=== PATIENT | female | born 1955 | race Caucasian/White ===

== ENCOUNTER 2019-07-06 09:21 | Inpatient (IN) ==
--- NOTE | 2019-07-06 09:13 | Anesthesia Evaluation PreOp ---
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 Significant HX Other Medical History: Renal (stage 3 CKD), Diabetes Type II, GERD, Other (obesity BMI=53.3) Anesthesia History: No Prior Anesthetic Complications, Past Anesthesia Alcohol Use: none Drug use: none Medications and Allergies Albuterol Sulfate [Proair Respiclick] 2 puff IH Q4H PRN 05/23/18 [History] Aspirin 81 mg PO DAILY 05/23/18 [History] Cetirizine HCl [All Day Allergy] 10 mg PO DAILY 05/23/18 [History] Escitalopram [Lexapro] 20 mg PO DAILY 05/23/18 [History] Ferrous Sulfate [Iron] 1 tab PO DAILY 05/23/18 [History] Fluticasone Propionate Nasal [Flonase] 2 spray NS DAILY 05/23/18 [History] Furosemide [Lasix] 20 mg PO DAILY 05/23/18 [History] Gabapentin [Neurontin] 900 mg PO TID 05/23/18 [History] Glimepiride [Amaryl] 1 tab PO DAILY 05/23/18 [History] HYDROcodone/Acet 10/325 mg [[place] 10-325 mg] 1 tab PO TID PRN 05/23/18 [History] HYDROcodone/Acet 7.5/325 mg [[place] 7.5-325 mg] 1 tab PO Q6H PRN 3 Days #12 tablet 05/23/18 [Rx] Lisinopril 2.5 mg PO DAILY 05/23/18 [History] Loratadine [Claritin] 10 mg PO DAILY 05/23/18 [History] Lovastatin [Mevacor] 20 mg PO HS 05/23/18 [History] Metoprolol Succinate [Toprol Xl] 1 tab PO DAILY 05/23/18 [History] Multivitamin [One Daily Essential] 1 tab PO DAILY 05/23/18 [History] Nystatin POWDER [Nystop] 1 appl TP BID 05/23/18 [History] Omeprazole [PriLOSEC] 1 cap PO DAILY 05/23/18 [History] Potassium Chloride [K-Tab ER] 20 meq PO DAILY 05/23/18 [History] Tizanidine HCl [Zanaflex] 1 - 2 tab PO HS PRN 05/23/18 [History] Clindamycin [Cleocin] 150 mg PO Q6HR 2 Days #7 capsule 07/06/19 [Rx] Docusate [Colace] 100 mg PO BID 5 Days #10 capsule 07/06/19 [Rx] Ergocalciferol (VITAMIN D2) [Vitamin D2] 50,000 unit PO FR 07/06/19 [History] Oxybutynin [Ditropan] 5 mg PO BID 07/06/19 [History] Allergy/AdvReac Type Severity Reaction Status Date / Time No Known Allergies Allergy Verified 07/06/19 10:44 - Meds/Allergy Pre-op Review Medications Reviewed: Yes Allergies Reviewed: Yes Beta Blockers on Current Med List: Yes If Beta Blockers taken, Date/Time (Last Dose taken): 07/06/2019 at 0730 Anesthesia Results - Labs Laboratory Tests 07/02/19 07/02/19 07/02/19 15:09 15:09 15:09 WBC 6.9 Hgb 13.3 Hct 41.7 Plt Count 180 PT 12.2 H INR 1.1 APTT 33.5 Sodium 138 Potassium 4.0 BUN 15 Creatinine 1.08 - Imaging EKG: report reviewed (07/02/2019 SINUS RHYTHM) Additional studies: 11/17/2014 Echo Impressions: Technically sub-optimal due to body habitus, even with Definity. Grossly normal LV function. LVEF 60%. Unable to fully evaluate segmental wall motion due to technical quality. LV chamber size and wall thickness were not well measured. Normal right ventricular structure and function. Valvular structures were not well visualized. Valvular Doppler evaluation was limited. Mild aortic regurgitation. PHT was not obtained. At least trace tricuspid regurgitation. Mild pulmonary hypertension. Estimated RVSP is 48 mmHg. RVSP is probably underestimated - TR was not well seen. Findings: Study Quality * Technically sub-optimal due to body habitus, even with Definity. ECG Findings * Sinus rhythm with PACs. Left Ventricle * Grossly normal LV function. LVEF 60%. * Unable to fully evaluate segmental wall motion due to technical quality. * LV chamber size and wall thickness were not well measured. Right Ventricle * Normal right ventricular structure and function. Left Atrium * Normal left atrial size. Right Atrium * Normal right atrial size. Interatrial Septum * Interatrial septum not well evaluated. Aortic Valve * Aortic valve not well visualized. * Mild aortic regurgitation. PHT was not obtained. * Probably no aortic stenosis (though Doppler evaluation was suboptimal). Mitral Valve * Mitral valve not well visualized. Tricuspid Valve * Tricuspid valve not well visualized. * Trace tricuspid regurgitation. * Mild pulmonary hypertension. * Estimated RVSP is 48 mmHg. * Estimated RA pressure is 5 mmHg. Pulmonic Valve * Pulmonic valve not well visualized. Aorta * The aorta was not well seen. Pericardium * The pericardium appears normal. IVC * The IVC is not well evaluated. Pulmonary Artery * Pulmonary artery not well visualized. Anesthesia Exam O2 Sat Height 1.65 m Weight 145.15 kg O2 Sat by Pulse Oximetry 96 Vital Signs Temp Pulse Resp BP Pulse Ox 98.5 F 82 18 115/64 96 07/06/19 09:59 07/06/19 09:59 07/06/19 09:59 07/06/19 09:59 07/06/19 09:59 Blood Glucose* 134 Height: 5'5'' Weight: 320 lbs NPO (# of Hours): 8 Pain Scale: 5 Pain Scale Used: Numeric (1 - 10) - HEENT Pupil (Motor): EOMI Mallampati: III Teeth: Edentulous Denture Type: Upper: Complete, Lower: Complete Oral Opening: Greater than 3 - LIFE SCIENCES TEACHER LOC: Oriented LIFE SCIENCES TEACHER Motor: Normal RUE, Normal RLE, Normal LLE, Normal Face, Deficit LUE LIFE SCIENCES TEACHER Sensory: Normal: RUE, LUE, RLE, LLE, Face - Cardiac Rhythm: Regular (distant heart sounds) Murmur: None - Pulmonary Breath Sounds: bilateral Clear (distant BS) Respiratory Effort: Symmetrical Anesthesia Assess/Plan ASA Score: 4 Level of consciousness: Cooperative, Oriented, Tranquil Anesthetic Plan: General, Regional Nerve Block (post-op pain) Regional Nerve Block Plan: Supraclavicular Monitoring Plan: Standard Monitors Recovery Plan: PACU
--- NOTE | 2019-07-06 09:36 | History & Physical Report ---
Date of Encounter: 07/06/19 Time of Encounter: 09:36 24 Hour HP Update - Instructions Instructions: If the History and Physical is less than 30 days old and was completed prior to A.M. admission and or procedure and has NOT been updated on calendar day of procedure please complete this update prior to performing procedure. - Update Patient reports changes in Medical Condition: No Changes in examination, assessment, or condition: No Changes in Medication: No Preop tests/diagnostics Reviewed: Yes Surgery Remains Indicated: Yes Consent for Planned Operative Procedure(s) Verified: Yes - Pre-Operative Checklist Preoperative Checklist Indicated: No Prophylactic Antibiotic Ordered: Yes Is VTE Prophylaxis Indicated?: Yes
--- NOTE | 2019-07-06 09:56 | Discharge Summary ---
<Alec Blancas M - Last Filed: 07/06/19 09:53> Date of Encounter: 07/06/19 - Discharge Diagnosis (1) Left shoulder pain Priority: Primary Status: Acute Qualifiers: Chronicity: unspecified Qualified Code(s): M25.512 - Pain in left shoulder (2) Status post reverse arthroplasty of left shoulder Priority: Primary Status: Acute - Hospital Course Hospital course: Ms. Lynch is a 64 year old female - Time Spent with Patient Total time spent providing and/or coordinating discharge services: - Discharge Medications Prescriptions: New Docusate [Colace] 100 mg PO BID 5 Days #10 capsule Continued Lovastatin [Mevacor] 20 mg PO HS Aspirin 81 mg PO DAILY Escitalopram [Lexapro] 20 mg PO DAILY Metoprolol Succinate [Toprol Xl] 25 tab PO DAILY Glimepiride [Amaryl] 2 mg PO DAILY Multivitamin [One Daily Essential] 1 tab PO DAILY Ferrous Sulfate [Iron] 325 mg PO BID Nystatin POWDER [Nystop] 1 appl TP BID PRN PRN Reason: IRRITATION Albuterol Sulfate [Proair Respiclick] 2 puff IH Q4H PRN PRN Reason: Shortness Of Breath Omeprazole [PriLOSEC] 40 mg PO DAILY Loratadine [Claritin] 10 mg PO QAM Fluticasone Propionate Nasal [Flonase] 2 spray NS DAILY PRN PRN Reason: Allergy Symptoms HYDROcodone/Acet 10/325 mg [[place] 10-325 mg] 1 tab PO TID PRN PRN Reason: Pain Tizanidine HCl [Zanaflex] 2 - 4 tab PO HS PRN PRN Reason: Muscle Spasm Gabapentin [Neurontin] 900 mg PO TID Lisinopril 2.5 mg PO DAILY Oxybutynin [Ditropan] 5 mg PO BID Ergocalciferol (VITAMIN D2) [Vitamin D2] 50,000 unit PO FR Buspirone HCl [Buspar] 5 mg PO BID Potassium Chloride [Klor-Con 10] 10 meq PO DAILY Dicyclomine [Bentyl] 10 mg PO BID Cholestyramine/Aspartame [Cholestyramine Light Packet] 1 - 2 pack PO DAILY Alogliptin Benzoate [Alogliptin] 12.5 mg PO DAILY Cetirizine HCl [24Hour Allergy] 10 mg PO QPM Home Medications: Albuterol Sulfate [Proair Respiclick] 2 puff IH Q4H PRN 05/23/18 [History] Aspirin 81 mg PO DAILY 05/23/18 [History] Escitalopram [Lexapro] 20 mg PO DAILY 05/23/18 [History] Ferrous Sulfate [Iron] 325 mg PO BID 05/23/18 [History] Fluticasone Propionate Nasal [Flonase] 2 spray NS DAILY PRN 05/23/18 [History] Gabapentin [Neurontin] 900 mg PO TID 05/23/18 [History] Glimepiride [Amaryl] 2 mg PO DAILY 05/23/18 [History] HYDROcodone/Acet 10/325 mg [[place] 10-325 mg] 1 tab PO TID PRN 05/23/18 [History] Lisinopril 2.5 mg PO DAILY 05/23/18 [History] Loratadine [Claritin] 10 mg PO QAM 05/23/18 [History] Lovastatin [Mevacor] 20 mg PO HS 05/23/18 [History] Metoprolol Succinate [Toprol Xl] 25 tab PO DAILY 05/23/18 [History] Multivitamin [One Daily Essential] 1 tab PO DAILY 05/23/18 [History] Nystatin POWDER [Nystop] 1 appl TP BID PRN 05/23/18 [History] Omeprazole [PriLOSEC] 40 mg PO DAILY 05/23/18 [History] Tizanidine HCl [Zanaflex] 2 - 4 tab PO HS PRN 05/23/18 [History] Alogliptin Benzoate [Alogliptin] 12.5 mg PO DAILY 07/06/19 [History] Buspirone HCl [Buspar] 5 mg PO BID 07/06/19 [History] Cetirizine HCl [24Hour Allergy] 10 mg PO QPM 07/06/19 [History] Cholestyramine/Aspartame [Cholestyramine Light Packet] 1 - 2 pack PO DAILY 07/06/19 [History] Dicyclomine [Bentyl] 10 mg PO BID 07/06/19 [History] Docusate [Colace] 100 mg PO BID 5 Days #10 capsule 07/06/19 [Rx] Ergocalciferol (VITAMIN D2) [Vitamin D2] 50,000 unit PO FR 07/06/19 [History] Oxybutynin [Ditropan] 5 mg PO BID 07/06/19 [History] Potassium Chloride [Klor-Con 10] 10 meq PO DAILY 07/06/19 [History] Allergies/Adverse Reactions: Allergy/AdvReac Type Severity Reaction Status Date / Time No Known Allergies Allergy Verified 07/06/19 10:44 Primary care physician: Sandrine Rodriguez MD - Patient Status Disposition: Home Health Service Condition: Good - Discharge Instructions Follow Up With: Pietro Monterroso MD [Partnered Physician] - 08/05/19 5:05 pm Monica Maire CNP [Advanced Practice Nurse] - 07/16/19 1:30 pm Additional Instructions: Patient is to HOLD chronic norco for 1-2 weeks while taking oxycodone for initial postop pain before weaning back to her chronic norco. Discharge Instructions: Total Shoulder Please call [facility] ([phone]), your Primary Care Physician, or report to the Emergency Room if you have any of the following symptoms: Nausea, vomiting, fever greater that 101.5, swelling, chest pain, shortness of breath, increased pain/redness/drainage/odor for your incision site, numbness/tingling, or any other concerning symptoms. ACTIVITY: Always keep your arm in the sling. Do not raise your arm away from your body. Do not use your arm to help with getting in or out of bed. No weight bearing permitted. Only perform those exercises given to you by your therapist. Incentive Spirometer 10 times an hour. MEDICATIONS: Upon discharge resume your home medications. Take all the medications as prescribed. Take a stool softener if taking narcotic pain medications. Stool softeners are only effective if you drink enough fluids. Drink 6-8 glass of water or fluids a day, unless this is not allowed for another health problem. Despite using stool softeners, if you haven't had a bowel movement in 3 days, please switch to a gentle laxative. Gentle laxatives are sold over the counter. You should have a bowel movement within 24 hours, if not call the office. You will be discharged from the hospital with a prescription for pain medication. You are encouraged to decrease the use of narcotic pain medication as tolerated. Should you require a refill, please call the office. [facility] prescribes narcotic pain medication for only 4-6 weeks after surgery. If you require pain medication beyond this time period, you may be referred to your Primary Care Physician or to the Pain Clinic for further evaluation. Plan ahead for refills on pain medication as many narcotics either need to be picked up at the office or mailed. It is best to call 48-72 hours in advance of needing a prescription refill so you don't run out of medication. To help control the post-operative pain, you may take NSAIDs (Aleve,Advil, Motrin, Ibuprofen, Naprosyn) or Tylenol as prescribed on the bottle in addition to the pain medication. WOUND CARE: Leave the dressing on for 7-10 days. You may change the dressing if it becomes saturated greater than 50%. Do not get the dressing wet at anytime. Wash your hands with antibacterial soap, rinse and dry prior to any wound care. If you have sasha the visiting nurse or rehab facility can remove the stapes 10-14 days after surgery and place steri-strips across the wound. Leave the steri-strips in place until they fall off on their own. You may let water from the shower run on top of the steri-strips. If you do not have a visiting nurse or rehab facility, you will need to return to the office at 10-14 days for the sasha to be removed. If you have itching or redness around the dressing call the office. FOLLOW-UP: Please follow up with your surgeon in the orthopedic clinic, as scheduled <Lizett Rolle - Last Filed: 07/07/19 18:22> - NOTES TO OUTPATIENT PROVIDER Notes to Outpatient Provider: Patient is to HOLD chronic norco for 1-2 weeks while taking oxycodone for initial postop pain before weaning back to her chronic norco. Orders not resulted at time of discharge: Pending orders 07/06/19 13:21 Surgical Pathology [PTH] Routine Date of Encounter: 07/07/19 Time of Encounter: 12:45 - Discharge Diagnosis (1) Status post reverse arthroplasty of left shoulder Priority: Primary Status: Acute (2) Left rotator cuff tear arthropathy Priority: Primary Status: Chronic (3) Diabetes mellitus Priority: Secondary Status: Chronic Qualifiers: Diabetes mellitus type: type 2 Diabetes mellitus jewel waxer insulin use: unspecified jewel waxer insulin use status Diabetes mellitus complication status: without complication Qualified Code(s): E11.9 - Type 2 diabetes mellitus without complications (4) HTN (hypertension) Priority: Secondary Status: Chronic Qualifiers: Hypertension type: unspecified Qualified Code(s): I10 - Essential (primary) hypertension (5) Obesity, morbid, BMI 50 or higher Priority: Secondary Status: Chronic (6) COPD (chronic obstructive pulmonary disease) Priority: Secondary Status: Chronic Qualifiers: COPD type: unspecified COPD Qualified Code(s): J44.9 - Chronic obstructive pulmonary disease, unspecified (7) GERD (gastroesophageal reflux disease) Priority: Secondary Status: Chronic Qualifiers: Esophagitis presence: esophagitis presence not specified Qualified Code(s): K21.9 - Gastro-esophageal reflux disease without esophagitis (8) CKD (chronic kidney disease) Priority: Secondary Status: Chronic Qualifiers: Chronic kidney disease stage: unspecified stage Qualified Code(s): N18.9 - Chronic kidney disease, unspecified - Hospital Course Hospital course: Ms. Lynch is a 64 year old female status post left TSR reverse 07/06/19 with medical history of DM, HTN, obesity, COPD, GERD, CKD and h/o cervical cancer. She participated in therapy and had an uneventful hospital course. She will follow up in [facility] office next week for reevaluation. PCR - POD#1 s/p left TSR reverse 07/06. Patient seen at bedside, without complaints. A&O x 3 Afebrile, vital signs stable. Dressings c/d/i,, NV intact, sensation intact distally. Labs reviewed. H/H - 11.4/34.6 stable, asymptomatic Pain control: adequate Participating in PT. All questions and concerns addressed. Educated on use of incentive spirometer. Encouraged ambulation and proper hydration. Patient educated on post-operative restrictions and post-operative care. Assessment and plan: Continue with postoperative care Discharge plan: Home with home health, discharge today. *She is to HOLD her chronic norco for 1-2 weeks while taking oxycodone then will wean back to her chronic norco as appropriate. - Time Spent with Patient Total time spent providing and/or coordinating discharge services: Date of admission: 07/06/19 14:44 Primary care physician: Sandrine Rodriguez MD Consults: 07/06/19 14:46 Consult to Occupational Therapy [CONS] Routine Comment: post shoulder surgery Reason for Consult: post shoulder surgery Does patient have active BEDREST order?: No Is patient medically & hemodynamically stable?: Yes Consult to Physical Therapy [CONS] Routine Comment: post shoulder surgery Reason for Consult: post shoulder surgery Does patient have active BEDREST order?: No Is patient medically & hemodynamically stable?: Yes Consult to Drywall Installer [CONS] Routine Reason for SW Consult: shoulder surgery RT Post Op Consult [CONS] Routine 07/06/19 15:05 Consult to Nutrition [CONS] Routine Comment: Consulting Provider: NUTRITION Reason for Dietary Consult: MST Score Consult to Drywall Installer [CONS] Routine Reason for SW Consult: discharge needs Discharging clinician: Pietro Monterroso Anticipated date of discharge: 07/07/19 Labs on day of discharge: Labs from last 24 hours 07/07/19 07/07/19 07/06/19 05:06 05:06 20:48 Hgb 11.4 L Hct 34.6 L Sodium 139 Potassium 4.4 Chloride 106 Carbon Dioxide 22 L BUN 20 Creatinine 1.03 Est GFR ( Amer) > 60 Est GFR (Non-Af Amer) 54 L BUN/Creatinine Ratio 19 Glucose 170 H POC Glucose 144 H Calculated Osmolality 295 Calcium 8.7 07/06/19 07/06/19 07/06/19 16:43 14:05 09:53 Hgb 11.9 Hct 37.2 Sodium Potassium Chloride Carbon Dioxide BUN Creatinine Est GFR ( Amer) Est GFR (Non-Af Amer) BUN/Creatinine Ratio Glucose POC Glucose 214 H 134 H Calculated Osmolality Calcium - Impressions ITS Impressions Shoulder X-Ray 07/06/19 15:41 IMPRESSION: Status post reverse left shoulder arthroplasty as described above. D/ / 07/06/2019 15:51:19 Pop Chase MD / [email or web address] Interpreting Provider: Pop Chase MD - Patient Status Functional capacity at discharge: independent ambulation Overall status at discharge: patient is back to baseline - Diet and Activity Activity: as per physical therapy Diet: advance to your usual diet
[2019-07-06] MEDS ORDERED: Ropivacaine/PF 0.5% 30 ML VIAL ONE (10:16)
[2019-07-06] MEDS ORDERED: ROPIVACAINE/PF/NS 0.25% 1 EACH SYRINGE INTRAART ONE (10:16)
[2019-07-06] MEDS ORDERED: Albuterol 2.5 MG/3 ML NEBULIZER IH ONE (10:20)
[2019-07-06] MEDS ORDERED: CeFAZolin Syr 3,000MG/30 ML 3,000 MG/30 ML SYRINGE IVPB ONE (10:20)
[2019-07-06] MEDS ORDERED: Ringers Solution, Lactated 1,000 ML IVC SCH ×2 (10:30→14:46)
[2019-07-06] MEDS ORDERED: *HR* Midazolam HCl 2 MG/2 ML VIAL ONE (10:42)
[2019-07-06] MEDS ORDERED: Ondansetron 4 MG/2 ML VIAL ONE (10:42)
[2019-07-06] MEDS ORDERED: *HR* Propofol 200 MG/20 ML VIAL IVP ONE (10:42)
[2019-07-06] MEDS ORDERED: Lidocaine -MPF 2% 2 ML VIAL ONE (10:42)
[2019-07-06] MEDS ORDERED: *HR* FentaNYL (PF) 100 MCG/2 ML VIAL ONE (10:42)
[2019-07-06] MEDS ORDERED: *HR* Succinylcholine 200 MG/10 ML VIAL IVP ONE (10:42)
[2019-07-06] MEDS ORDERED: Dexamethasone 4 MG/ML VIAL ONE ×2 (10:59)
[2019-07-06] MEDS ORDERED: Lidocaine -MPF 4% 5 ML AMPUL ONE (11:00)
[2019-07-06] MEDS ORDERED: Ondansetron 4 MG/2 ML VIAL IVP ONE (11:12)
[2019-07-06] MEDS ORDERED: *HR* OxyCODONE Immed Rel 5 MG TABLET PO PRN (11:12)
[2019-07-06] MEDS ORDERED: *HR* HYDROmorphone (PF) 1 MG/ML SYRINGE IVP PRN (11:12)
[2019-07-06] MEDS ORDERED: Ethanol\\Acetic Acid\\Na Ace\\Ben 1,000 ML IRRIG.SOLN IR ONE (11:48)
[2019-07-06] MEDS ORDERED: *HR* Vasopressin 20 UNIT/ML VIAL ONE (12:01)
[2019-07-06] MEDS ORDERED: *HR* PHENYLEPHRINE 1,000 MCG/10 ML SYRINGE IVP ONE (12:23)
--- NOTE | 2019-07-06 13:16 | Orthopedic Operative Note ---
Date of procedure: 07/06/19 Pre-op diagnosis: Left shoulder cuff tear arthropathy Post-op diagnosis: same Procedure: Procedure: Total Shoulder Replacment Reverse, left Estimated blood loss: 200 cc Hardware: Metal and polyethylene replacement: Arthrex 24, +2 ,25 mm screw glenoid baseplate, 4 locking 5.5 screw, 39+4 glenosphere, 10 [place] humeral stem, poly insert 3 Exam Under anesthesia: Full motion no instability Procedural Notes: Irreparable rotator cuff tear Operative procedure: The patient was brought to the operating room and placed on the operating room table. After general anesthesia was administered the operative shoulder was examined. Findings were noted. The patient was placed in the modified beachchair position. All pressure points were padded appropriately. And the head was stabilized in the neutral position. The operative extremity was prepped and draped in the sterile surgical fashion. The patient received IV antibiotics prior to skin incision. A standard deltopectoral approach was made to the operative shoulder. Incision was made to the skin and subcutaneous tissue,hemo stasis was obtained with Bovie cautery. Using careful blunt dissection the cephalic vein was identified and mobilized medially. The deltopectoral interval was developed and the clavipectoral fascia was incised. The subscap was released off the lesser tuberosity and tagged with #2 FiberWire suture subscap was irreparable. The humerus was dislocated patient noted to have irreparable tear supraspinatus tendon, and the humeral cut was made along the anatomic neck. Anterior and posterior Bankart retractors were placed to expose the glenoid. The glenoid guide was seated and the centering hole was made. It was reamed with the appropriate reamer. The baseplate was seated and secured with 4 locking 5.5 screw. The baseplate was irrigated and dried and the Glenosphere was seated and secured with the Tyson taper. The Tyson taper was tested and found to be secure, glenosphere fixation was secondarily secured with the central screw. The humerus was redislocated and prepared with the diaphyseal reamers, followed by a broaching process up to the appropriate size [place] stem in the patient's anatomic version. The metaphyseal reamer was then utilized. Trial reduction found the shoulder to be relocatable. Trial components were removed and the [place] stem was impacted in place in the patient's anatomic version. Trial reduction found the shoulder to be relocatable and stable with the appropriate poly. Trial component was removed and the real implant was seated and secured the shoulder was reduced. The shoulder had excellent motion and excellent stability and no evidence of dislocation. The deep tissue was irrigated with pulse irrigation. The PA close the shoulder. The deltopectoral interval was closed with a running #1 PDS suture, subcutaneous tissue was irrigated and closed with 0 PDS suture, the skin was closed with Dermabond. The patient was placed in a sterile dressing, abduction brace and extubated. The patient was then transferred to the recovery room in stable condition. Anesthesia: CHANELL Surgeon: Pietro Monterroso Was there an yard assistant present: Yes Parts Puller: Alec Blancas Estimated blood loss (cc): 200 Condition: stable Disposition: PACU
--- NOTE | 2019-07-06 14:18 | Anesthesia Evaluation Post Op ---
Date of Encounter: 07/06/19 Time of Encounter: 14:17 - Vital Signs Vital Signs: Vital Signs/O2 Sat, Most Current Temp Pulse Resp BP Pulse Ox 98.0 F 72 16 129/71 96 07/06/19 14:12 07/06/19 14:12 07/06/19 14:12 07/06/19 14:12 07/06/19 14:12 - Lungs Lungs: Clear Ascult./Percussion - Airway Airway: Non-obstructed - Cardiovascular Regular Rate - Mental Status Mental Status: Alert & Oriented, Answers Appropriately - Pain Pain Scale: 0 Pain Scale used: Numeric (1 - 10) - Nausea Vomiting Nausea Vomiting: Not Present - Hydration Hydration: Ice chips, Has not voided - Discharge PostOp Status: Transfer Patient to floor
[2019-07-06 14:30] LABS: Hematocrit 37.2 % (35.3-44.9); Hemoglobin 11.9 g/dL (11.5-15.4)
[2019-07-06] MEDS ORDERED: Fluticasone Propionate Nasal 50 MCG/SPRAY BOTTLE NS PRN (14:46)
[2019-07-06] MEDS ORDERED: D5% in Water 1,000 ML IVC PRN (14:46)
[2019-07-06] MEDS ORDERED: MOM Conc 10 ML UD.LIQ PO PRN (14:46)
[2019-07-06] MEDS ORDERED: Ondansetron 4 MG/2 ML VIAL IVP PRN (14:46)
[2019-07-06] MEDS ORDERED: Temazepam 15 MG CAPSULE PO PRN (14:46)
[2019-07-06] MEDS ORDERED: Dextrose Gel 15 GM/37.5 ML TUBE PO PRN ×2 (14:46)
[2019-07-06] MEDS ORDERED: Sennosides 8.6 MG TABLET PO PRN (14:46)
[2019-07-06] MEDS ORDERED: tiZANidine 4 MG TABLET PO PRN (14:46)
[2019-07-06] MEDS ORDERED: Naloxone 0.4 MG/ML INJ IVP PRN (14:46)
[2019-07-06] MEDS ORDERED: traMADol 50 MG TABLET PO PRN (14:46)
[2019-07-06] MEDS ORDERED: *HR* Dextrose 50 % in Water (Syg) 50 ML SYRINGE IVP PRN (14:46)
[2019-07-06] MEDS ORDERED: Nystatin POWDER 30 GM BOTTLE TP PRN (14:46)
[2019-07-06] MEDS: *HR* Enoxaparin 30 MG/0.3 ML SYRINGE SQ SCH (16:41)
[2019-07-06] MEDS: Gabapentin 300 MG CAPSULE PO SCH ×2 (16:41→20:57)
[2019-07-06] MEDS: Insulin LISPRO 300 UNITS/3 ML VIAL SQ SCH (16:52)
[2019-07-06] MEDS ORDERED: [UNRECOGNIZED DRUG - REMARK] PO SCH (18:00)
[2019-07-06] MEDS ORDERED: *HR* Enoxaparin 30 MG/0.3 ML SYRINGE SQ SCH (18:00)
[2019-07-06] MEDS: ceFAZolin sodium 3,000 MG in 0.9 % Sodium Chloride 100 ML IVPB SCH (18:49)
[2019-07-06] MEDS ORDERED: Insulin LISPRO 300 UNITS/3 ML VIAL SQ SCH (21:00)
[2019-07-07] MEDS: ceFAZolin sodium 3,000 MG in 0.9 % Sodium Chloride 100 ML IVPB SCH (01:56)
[2019-07-07] MEDS: *HR* OxyCODONE/APAP 5/325 TABLET PO PRN ×2 (03:54→08:02)
[2019-07-07 05:18] LABS: Hematocrit 34.6 % (35.3-44.9); Hemoglobin 11.4 g/dL (11.5-15.4)
[2019-07-07] MEDS: *HR* Enoxaparin 30 MG/0.3 ML SYRINGE SQ SCH (05:33)
[2019-07-07 05:38] LABS: BUN/Creatinine Ratio 19 (6-26); Blood Urea Nitrogen 20 mg/dL (8-23); Calcium 8.7 mg/dL (8.6-10.3); Carbon Dioxide 22 mEq/L (23-29); Chloride 106 mEq/L (98-107); Glucose 170 mg/dL (70-105); Osmolality,Calculated 295 (280-300); Potassium 4.4 mEq/L (3.5-5.1); Sodium 139 mEq/L (136-145); eGFR For African Americans > 60 (> 60); eGFR For Non-African Americans 54 (> 60)
--- NOTE | 2019-07-07 06:36 | Orthopedics Progress Note ---
Date of Encounter: 07/07/19 Time of Encounter: 06:36 Subjective Interval history: Patient was seen this morning doing well without complaints. Afebrile vital signs stable. Operative extremity: Neurovascularly intact Dressing clean dry and intact Calves nontender Assessment and plan: Continue with postoperative care Hematocrit 34 Objective Vital signs: Vital Signs Temp Pulse Resp BP Pulse Ox 07/07/19 03:48 98.1 F 81 16 121/69 94 07/06/19 22:42 97.7 F 75 17 112/53 95 07/06/19 19:47 97.9 F 70 16 150/66 94 07/06/19 17:30 99.2 F 72 16 133/67 97 07/06/19 16:30 98.6 F 80 16 115/73 96 07/06/19 15:30 98.5 F 74 16 114/72 95 07/06/19 15:00 97.8 F 72 18 107/67 94 07/06/19 14:30 71 16 115/65 95 07/06/19 14:22 98.0 F 70 16 124/51 96 07/06/19 14:12 98.0 F 72 16 129/71 96 07/06/19 14:02 72 16 111/62 96 07/06/19 13:52 74 16 115/84 96 07/06/19 13:42 97.9 F 88 16 120/70 94 07/06/19 12:19 74 16 108/56 98 07/06/19 12:01 76 16 105/41 97 07/06/19 11:40 77 16 109/52 99 07/06/19 10:23 98.5 F 82 18 115/64 96 07/06/19 09:59 98.5 F 82 18 115/64 96 Intake and Output 07/06/19 07/06/19 07/07/19 15:59 23:59 07:59 Intake Total 100 / 100 Output Total 200 / 200 Balance -200 / -100 100 / -100 Intake: IV Fluids 100 / 100 Ancef 3,000 MG In 0.9 % Sodium 100 / 100 Chloride 100 ML @ 200 mls/hr IVPB Q8H [facility] Rx#:[id number] Output: Estimated Blood Loss 200 / 200 Other: # Voids 1 1 Weight 145.15 kg 145.3 kg Blood Glucose* 108 144 Patient Weight 07/07/19 23:59 Weight 145.3 kg - Labs CBC & BMP: 07/07/19 05:06 07/07/19 05:06 Labs: Abnormal lab results Hgb 11.4 g/dL (11.5-15.4) L 07/07/19 05:06 Hct 34.6 % (35.3-44.9) L 07/07/19 05:06 Carbon Dioxide 22 mEq/L (23-29) L 07/07/19 05:06 Est GFR (Non-Af Amer) 54 (> 60) L 07/07/19 05:06 Glucose 170 mg/dL (70-105) H 07/07/19 05:06 POC Glucose 144 mg/dL (70-99) H 07/06/19 20:48 - VTE Documentation of Mechanical Device: Venous foot pump, device Consult Discharge Plan - Plan Referrals: Sandrine Rodriguez MD [Primary Care Provider] -
[2019-07-07] MEDS ORDERED: *HR* Glimepiride 2 MG TABLET PO SCH (08:00)
[2019-07-07] MEDS: Gabapentin 300 MG CAPSULE PO SCH (08:01)
[2019-07-07] MEDS: Insulin LISPRO 300 UNITS/3 ML VIAL SQ SCH ×2 (08:14→11:48)
[2019-07-07] MEDS ORDERED: Multivit/Ca/Min/Fe/FA 1 TAB TABLET PO SCH (09:00)
[2019-07-07] MEDS ORDERED: Cholecalciferol (D-3) 1,000 UNIT (25MCG) TABLET PO SCH (09:00)
[2019-07-07] MEDS ORDERED: Aspirin 81 MG TAB.CHEW PO SCH (09:00)
[2019-07-07] MEDS ORDERED: (Alogliptin Benzoate [Alogliptin] 12.5 MG) PO SCH (09:00)
[2019-07-07] MEDS ORDERED: Loratadine 10 MG TABLET PO SCH (09:00)
[2019-07-07] MEDS ORDERED: Metoprolol XL (24 HR) Succ 25 MG TAB.ER.24H PO SCH (09:00)
[2019-07-07] MEDS: *HR* OxyCODONE Immed Rel 5 MG TABLET PO PRN ×2 (09:53→15:42)
[2019-07-07 11:58] VITALS: BP 150/75
[2019-07-07] MEDS ORDERED: Cholestyramine 4 GM POWD.PACK PO SCH (12:00)
--- NOTE | 2019-07-07 14:12 | Physician Discharge Referral ---
Home Health/Hosp Referral Info Transfer to: Home Health Attending Provider: Dr. Monterroso - Diagnosis (1) Status post reverse arthroplasty of left shoulder Priority: Primary Status: Acute (2) Left rotator cuff tear arthropathy Priority: Primary Status: Chronic (3) Diabetes mellitus Priority: Secondary Status: Chronic (4) HTN (hypertension) Priority: Secondary Status: Chronic (5) Obesity, morbid, BMI 50 or higher Priority: Secondary Status: Chronic (6) COPD (chronic obstructive pulmonary disease) Priority: Secondary Status: Chronic (7) GERD (gastroesophageal reflux disease) Priority: Secondary Status: Chronic (8) CKD (chronic kidney disease) Priority: Secondary Status: Chronic - Respiratory Orders Smoking Cessation: Smoking cessation has been advised. For more information, call the [employer] Tobacco Quit Line at 4-409-ZWXU-NOW. - Diet/Nutrition Diet/Nutrition Orders: Regular - Activity Activity Orders: Up ad james - Services Needed Following services are medically necessary services: Nursing, Home Health Aide, Physical Therapy, Occupational Therapy Home Care Orders: Opsite dressing, leave intact until first post-operative visit. Zipline/Jeremy in place, plan to remove at post-operative day #14-16. If dressing becomes >50% saturated, contact office, remove dressing and place appropriate dressing in its place. Do not allow for dressing to get wet. Shoulder Precautions x 6 weeks. Apply cold therapy wrap 3-6x/day for 20 minutes at a time. Encourage ambulation throughout the day. Use Incentive spirometer 10x/hour. Elevate affected extremity above heart as tolerated. NWB to affected upper extremity x 6 weeks. Will remove brace at first post-operative appointment. OK to remove during PT/OT and Home exercises. - Transfer Medications Home Medications: Albuterol Sulfate [Proair Respiclick] 2 puff IH Q4H PRN 05/23/18 [History] Aspirin 81 mg PO DAILY 05/23/18 [History] Escitalopram [Lexapro] 20 mg PO DAILY 05/23/18 [History] Ferrous Sulfate [Iron] 325 mg PO BID 05/23/18 [History] Fluticasone Propionate Nasal [Flonase] 2 spray NS DAILY PRN 05/23/18 [History] Gabapentin [Neurontin] 900 mg PO TID 05/23/18 [History] Glimepiride [Amaryl] 2 mg PO DAILY 05/23/18 [History] HYDROcodone/Acet 10/325 mg [Cincinnatus 10-325 mg] 1 tab PO TID PRN 05/23/18 [History] Lisinopril 2.5 mg PO DAILY 05/23/18 [History] Loratadine [Claritin] 10 mg PO QAM 05/23/18 [History] Lovastatin [Mevacor] 20 mg PO HS 05/23/18 [History] Metoprolol Succinate [Toprol Xl] 25 tab PO DAILY 05/23/18 [History] Multivitamin [One Daily Essential] 1 tab PO DAILY 05/23/18 [History] Nystatin POWDER [Nystop] 1 appl TP BID PRN 05/23/18 [History] Omeprazole [PriLOSEC] 40 mg PO DAILY 05/23/18 [History] Tizanidine HCl [Zanaflex] 2 - 4 tab PO HS PRN 05/23/18 [History] Alogliptin Benzoate [Alogliptin] 12.5 mg PO DAILY 07/06/19 [History] Buspirone HCl [Buspar] 5 mg PO BID 07/06/19 [History] Cetirizine HCl [24Hour Allergy] 10 mg PO QPM 07/06/19 [History] Cholestyramine/Aspartame [Cholestyramine Light Packet] 1 - 2 pack PO DAILY 07/06/19 [History] Dicyclomine [Bentyl] 10 mg PO BID 07/06/19 [History] Docusate [Colace] 100 mg PO BID 5 Days #10 capsule 07/06/19 [Rx] Ergocalciferol (VITAMIN D2) [Vitamin D2] 50,000 unit PO FR 07/06/19 [History] Oxybutynin [Ditropan] 5 mg PO BID 07/06/19 [History] Potassium Chloride [Klor-Con 10] 10 meq PO DAILY 07/06/19 [History] Allergies/Adverse Reactions: Allergy/AdvReac Type Severity Reaction Status Date / Time No Known Allergies Allergy Verified 07/06/19 10:44 Certification: Further, I certify that my clinical findings support that this patient is homebound (i.e. absences from home require considerable and taxing effort and are for medical reasons or yarsani services or infrequently or short duration when for other reasons) because: Homebound Reason: Post-surgery restriction and or conditions limit ability to leave home Attestation: My signature below is to certify that this patient is under my care and that I, or nurse practitioner, or a physician cataloging assistant working with me, has a [id number] encounter with this patient.
== END 2019-07-07 16:36 | disposition home health service (06) | DRG 322 ==
LOC: SAMDAY 09:21 → 3NENU 14:44
PROVIDERS: ADMIT Orthopaedic Surgery; ATTEND Orthopaedic Surgery

== ENCOUNTER 2020-09-05 08:59 | Inpatient (IN) ==
[~2020-09-05 08:59] MED LIST: *HR* Meperidine 25 MG/ML SYRINGE IVP PRN; Acetaminophen IV 1,000 MG/100 ML INFUS..BTL IVPB ONE; Ondansetron 4 MG/2 ML VIAL IVP PRN
[2020-09-05] MEDS ORDERED: Ondansetron 4 MG/2 ML VIAL ONE ×2 (09:02→11:53)
[2020-09-05] MEDS ORDERED: *HR* Midazolam HCl 2 MG/2 ML VIAL ONE ×2 (09:02→11:30)
[2020-09-05] MEDS ORDERED: Lidocaine -MPF 2% 2 ML VIAL ONE ×2 (09:02→11:53)
[2020-09-05] MEDS ORDERED: *HR* Succinylcholine 200 MG/10 ML VIAL IVP ONE ×2 (09:02→11:53)
[2020-09-05] MEDS ORDERED: Dexamethasone 4 MG/ML VIAL ONE ×2 (09:02→11:53)
[2020-09-05] MEDS ORDERED: *HR* Propofol 200 MG/20 ML VIAL IVP ONE ×2 (09:02→11:53)
[2020-09-05] MEDS ORDERED: *HR* FentaNYL (PF) 100 MCG/2 ML VIAL ONE ×3 (09:02→11:53)
[2020-09-05] MEDS ORDERED: Lidocaine HCL 4 ML Topical Solution (Laryng-O-Jet Kit Sterile Pak) TP ONE ×2 (09:03→12:49)
[2020-09-05] MEDS ORDERED: *HR* PHENYLEPHRINE 1,000 MCG/10 ML SYRINGE IVP ONE (09:08)
[2020-09-05] MEDS ORDERED: CeFAZolin Syr 3,000MG/30 ML 3,000 MG/30 ML SYRINGE IVPB ONE (11:02)
[2020-09-05 11:15] LABS: Adenovirus Not Detected (Not Detect); Coronavirus 229E Not Detected (Not Detect); Coronavirus HKU1 Not Detected (Not Detect); Coronavirus NL63 Not Detected (Not Detect); Coronavirus OC43 Not Detected (Not Detect); Human Metapneumovirus Not Detected (Not Detect); Human Rhinovirus/Enterovirus Not Detected (Not Detect); SARS-CoV-2 Not Detected (Not Detect)
[2020-09-05] MEDS ORDERED: Ringers Solution, Lactated 1,000 ML IVC SCH ×2 (11:15→14:32)
[2020-09-05 11:16] LABS: Bordetella Pertussis Not Detected (Not Detect); Chlamydophila pneumoniae Not Detected (Not Detect); Influenza A Subtype 2009 H1 Not Detected (Not Detect); Influenza B Not Detected (Not Detect); Mycoplasma pneumoniae Not Detected (Not Detect); Parainfluenza Virus 1 Not Detected (Not Detect); Parainfluenza Virus 2 Not Detected (Not Detect); Parainfluenza Virus 3 Not Detected (Not Detect); Parainfluenza Virus 4 Not Detected (Not Detect); Respiratory Syncytial Virus Not Detected (Not Detect)
[2020-09-05] MEDS ORDERED: Povidone-Iodine 45 ML, Sodium Chloride IRRigation 1,000 ML IR ONE (11:25)
[2020-09-05] MEDS ORDERED: Ropivacaine/PF 0.5% 30 ML VIAL ONE (11:29)
[2020-09-05] MEDS ORDERED: Ethanol\\Acetic Acid\\Na Ace\\Ben 1,000 ML IRRIG.SOLN IR ONE (11:39)
[2020-09-05] MEDS ORDERED: Vancomycin 1,000 MG VIAL ONE (11:40)
[2020-09-05] MEDS ORDERED: *HR* Rocuronium Bromide 50 MG/5 ML VIAL ONE (13:13)
[2020-09-05 14:18] LABS: Hematocrit 37.5 % (35.3-44.9)
[2020-09-05] MEDS ORDERED: Ondansetron 4 MG/2 ML VIAL IVP PRN (14:32)
[2020-09-05] MEDS ORDERED: MOM Conc 10 ML UD.LIQ PO PRN (14:32)
[2020-09-05] MEDS ORDERED: Naloxone 0.4 MG/ML INJ IVP PRN (14:32)
[2020-09-05] MEDS ORDERED: Dextrose Gel 15 GM/37.5 ML TUBE PO PRN ×2 (14:32)
[2020-09-05] MEDS ORDERED: D5% in Water 1,000 ML IVC PRN (14:32)
[2020-09-05] MEDS ORDERED: Sennosides 8.6 MG TABLET PO PRN (14:32)
[2020-09-05] MEDS ORDERED: *HR* Dextrose 50 % in Water (Vial) 50 ML VIAL IVP PRN (14:32)
[2020-09-05] MEDS: Insulin LISPRO 300 UNITS/3 ML VIAL SQ SCH ×3 (16:38→20:25)
[2020-09-05] MEDS: CeFAZolin 2 GM/120 ML BAG IVPB SCH (16:44)
[2020-09-06] MEDS: CeFAZolin 2 GM/120 ML BAG IVPB SCH (00:49)
[2020-09-06] MEDS: *HR* OxyCODONE/APAP 5/325 TABLET PO PRN ×3 (00:52→16:44)
[2020-09-06 02:45] LABS: Hemoglobin 11.6 g/dL (11.5-15.4)
[2020-09-06 02:55] LABS: BUN/Creatinine Ratio 25 (6-26); Blood Urea Nitrogen 26 mg/dL (8-23); Calcium 8.9 mg/dL (8.6-10.3); Carbon Dioxide 26 mEq/L (23-29); Chloride 103 mEq/L (98-107); Glucose 187 mg/dL (70-105); Osmolality,Calculated 294 (280-300); Potassium 5.1 mEq/L (3.5-5.1); Sodium 137 mEq/L (136-145); eGFR For African Americans > 60 (> 60); eGFR For Non-African Americans 53 (> 60)
[2020-09-06] MEDS: *HR* OxyCODONE Immed Rel 5 MG TABLET PO PRN ×5 (03:40→23:28)
[2020-09-06] MEDS: Aspirin Enteric Coated 81 MG Tablet PO SCH (08:37)
[2020-09-06] MEDS: Insulin LISPRO 300 UNITS/3 ML VIAL SQ SCH ×4 (08:38→20:35)
[2020-09-06] MEDS ORDERED: Aspirin Enteric Coated 81 MG Tablet PO SCH (09:00)
[2020-09-07] MEDS: *HR* OxyCODONE Immed Rel 5 MG TABLET PO PRN (03:51)
[2020-09-07 05:39] LABS: Hemoglobin 11.8 g/dL (11.5-15.4)
[2020-09-07 05:57] LABS: BUN/Creatinine Ratio 25 (6-26); Blood Urea Nitrogen 23 mg/dL (8-23); Calcium 9.1 mg/dL (8.6-10.3); Carbon Dioxide 27 mEq/L (23-29); Chloride 101 mEq/L (98-107); Glucose 151 mg/dL (70-105); Osmolality,Calculated 291 (280-300); Potassium 4.2 mEq/L (3.5-5.1); Sodium 137 mEq/L (136-145); eGFR For African Americans > 60 (> 60); eGFR For Non-African Americans > 60 (> 60)
[2020-09-07 06:42] VITALS: BP 123/71
[2020-09-07] MEDS: Aspirin Enteric Coated 81 MG Tablet PO SCH (08:02)
[2020-09-07] MEDS: Insulin LISPRO 300 UNITS/3 ML VIAL SQ SCH (09:46)
== END 2020-09-07 10:58 | disposition home or self-care (01) | DRG 322 ==
LOC: SAMDAY 08:59 → 3NENU 14:33
PROVIDERS: ADMIT Orthopaedic Surgery; ATTEND Orthopaedic Surgery

== ENCOUNTER 2021-04-02 20:35 | Inpatient (IN) ==
[2021-04-02] MEDS ORDERED: 0.9 % Sodium Chloride 1,000 ML IVC STA (21:28)
[2021-04-02 21:37] LABS: Basophils % 0.2 %; Eosinophils % 0.6 %; Hematocrit 33.2 % (35.3-44.9); Hemoglobin 10.6 g/dL (11.5-15.4); Immature Granulocytes % 0.8 % (0-4); Lymphocytes # 0.6 K/mcL (0.6-4.6); Lymphocytes % 12.4 %; Mean Corpuscular HGB Conc 31.9 g/dL (31.6-35.5); Mean Corpuscular Hemoglobin 30.3 pg (28.0-33.3); Mean Corpuscular Volume 94.9 fL (83.0-100.0); Mean Platelet Volume 10.2 fL (9.4-12.4); Monocytes # 0.4 K/mcL (0.0-1.3); Monocytes % 7.4 %; Neutrophils # 4.1 K/mcL (1.6-8.9); Platelet Count 120 K/mcL (140-400); Red Cell Distribution Width 13.2 % (11.5-14.5); Segmented Neutrophils % 78.6 %; White Blood Count 5.2 K/mcL (4.3-11.1)
[2021-04-02 22:02] LABS: Alanine Aminotransferase 7 Units/L (7-52); Albumin 3.4 g/dL (3.5-5.7); Albumin/Globulin Ratio 1.2 (1.1-2.2); Alkaline Phosphatase 66 Units/L (34-104); Aspartate Amino Transferase 14 Units/L (13-39); BUN/Creatinine Ratio 14 (6-26); Bilirubin,Total 0.4 mg/dL (0.3-1.0); Blood Urea Nitrogen 18 mg/dL (8-23); Calcium 8.3 mg/dL (8.6-10.3); Carbon Dioxide 24 mEq/L (23-29); Chloride 100 mEq/L (98-107); Globulin 2.8 g/dL (2.4-3.5); Glucose 121 mg/dL (70-105); Magnesium 1.5 mg/dL (1.6-2.6); Osmolality,Calculated 281 (280-300); Potassium 4.3 mEq/L (3.5-5.1); Sodium 134 mEq/L (136-145); Total Protein 6.2 g/dL (6.4-8.9); Troponin I < 0.03 ng/mL (< 0.04); eGFR For African Americans 52 (> 60); eGFR For Non-African Americans 43 (> 60)
[2021-04-02 23:04] LABS: Adenovirus Not Detected (Not Detect); Bordetella Pertussis Not Detected (Not Detect); Chlamydophila pneumoniae Not Detected (Not Detect); Coronavirus 229E Not Detected (Not Detect); Coronavirus HKU1 Not Detected (Not Detect); Coronavirus NL63 Not Detected (Not Detect); Coronavirus OC43 Not Detected (Not Detect); Human Metapneumovirus Not Detected (Not Detect); Human Rhinovirus/Enterovirus Not Detected (Not Detect); Influenza A Subtype 2009 H1 Not Detected (Not Detect); Influenza B Not Detected (Not Detect); Mycoplasma pneumoniae Not Detected (Not Detect); Parainfluenza Virus 1 Not Detected (Not Detect); Parainfluenza Virus 2 Not Detected (Not Detect); Parainfluenza Virus 3 Not Detected (Not Detect); Parainfluenza Virus 4 Not Detected (Not Detect); Respiratory Syncytial Virus Not Detected (Not Detect); SARS-CoV-2 Not Detected (Not Detect)
[2021-04-02 23:15] LABS: Bilirubin,Urine Negative (Negative); Blood,Urine Negative (Negative); Clarity,Urine Clear (Clear); Color,Urine Light-Yellow (Yellow); Glucose,Urine (UA) Normal (Normal); Ketones,Urine Negative (Negative); Leukocyte Esterase,Urine Negative (Negative); Nitrite,Urine Negative (Negative); PH,Urine 6.5 pH Units (5.0-8.0); Protein,Urine Trace mg/dL (Neg-Trace); Specific Gravity,Urine 1.015 (1.010-1.025); Urobilinogen,Urine Normal (Normal)
[2021-04-02] MEDS ORDERED: Furosemide 40 MG/4 ML VIAL IVP ONE (23:29)
[2021-04-03] MEDS ORDERED: Ondansetron 4 MG/2 ML VIAL IVP PRN (00:46)
[2021-04-03] MEDS ORDERED: Naloxone 0.4 MG/ML INJ IVP PRN (00:46)
[2021-04-03] MEDS ORDERED: Melatonin 3 MG TABLET PO PRN (00:46)
[2021-04-03] MEDS ORDERED: *HR* Dextrose 50 % in Water (Vial) 50 ML VIAL IVP PRN (01:04)
[2021-04-03] MEDS ORDERED: D5% in Water 1,000 ML IVC PRN (01:04)
[2021-04-03] MEDS ORDERED: Dextrose Gel 15 GM/37.5 ML TUBE PO PRN ×2 (01:04)
[2021-04-03] MEDS ORDERED: Perflutren Lipid Microsphere 1.3 ML in 0.9 % Sodium Chloride 8.7 ML IVP PRN (01:16)
[2021-04-03 03:54] LABS: C-Reactive Protein 34 mg/L (Less than 10)
[2021-04-03 05:05] LABS: Eosinophils % 0.8 %; Red Cell Distribution Width 13.2 % (11.5-14.5)
[2021-04-03 05:07] LABS: Basophils % 0.2 %; Hematocrit 38.1 % (35.3-44.9); Immature Granulocytes % 0.8 % (0-4); Immature Platelets 3.9 % (1.1-6.1); Lymphocytes % 18.9 %; Mean Corpuscular HGB Conc 31.5 g/dL (31.6-35.5); Mean Corpuscular Hemoglobin 30.6 pg (28.0-33.3); Mean Corpuscular Volume 97.2 fL (83.0-100.0); Monocytes # 0.4 K/mcL (0.0-1.3); Monocytes % 8.6 %; Neutrophils # 3.5 K/mcL (1.6-8.9); Red Blood Count 3.92 M/mcL (3.82-4.97); Segmented Neutrophils % 70.7 %
[2021-04-03 05:08] LABS: Platelet Count 99 K/mcL (140-400)
[2021-04-03] MEDS: Insulin LISPRO 300 UNITS/3 ML VIAL SUBQ SCH ×3 (07:20→17:08)
[2021-04-03] MEDS ORDERED: Aspirin Enteric Coated 81 MG Tablet PO SCH (09:00)
[2021-04-03] MEDS: Metoprolol XL (24 HR) Succ 25 MG TAB.ER.24H PO SCH (11:00)
[2021-04-03] MEDS: Gabapentin 300 MG CAPSULE PO SCH ×3 (11:00→20:17)
[2021-04-03] MEDS: Nystatin Cream 15 GM TUBE TP SCH ×3 (11:01→20:17)
[2021-04-03] MEDS: Nystatin POWDER 30 GM BOTTLE TP SCH ×3 (11:01→20:17)
[2021-04-03] MEDS: lisinopriL 5 MG TABLET PO SCH (11:01)
[2021-04-03] MEDS: Multivit/Ca/Min/Fe/FA 1 TAB TABLET PO SCH (11:01)
[2021-04-03] MEDS: *HR* HYDROcodone/Acet 10/325 mg TABLET PO PRN (11:05)
[2021-04-03 11:12] LABS: Calcium 8.4 mg/dL (8.6-10.3); Potassium 4.2 mEq/L (3.5-5.1)
[2021-04-03] MEDS: cefTRIAXone 1,000 MG in Water for inj. (sterile) 10 ML IVP SCH (11:14)
[2021-04-03] MEDS: Aspirin Enteric Coated 81 MG Tablet PO SCH (11:22)
[2021-04-03] MEDS: Loratadine 10 MG TABLET PO SCH (17:03)
[2021-04-03] MEDS: Acetaminophen 325 MG TABLET PO PRN (17:05)
[2021-04-04 02:35] LABS: Basophils % 0.2 %; Eosinophils # 0.1 K/mcL (0.0-0.6); Eosinophils % 1.2 %; Hematocrit 33.9 % (35.3-44.9); Hemoglobin 11.4 g/dL (11.5-15.4); Immature Granulocytes % 0.5 % (0-4); Lymphocytes # 0.7 K/mcL (0.6-4.6); Lymphocytes % 17.4 %; Mean Corpuscular HGB Conc 33.6 g/dL (31.6-35.5); Mean Corpuscular Hemoglobin 31.6 pg (28.0-33.3); Mean Corpuscular Volume 93.9 fL (83.0-100.0); Mean Platelet Volume 10.8 fL (9.4-12.4); Monocytes # 0.5 K/mcL (0.0-1.3); Monocytes % 11.4 %; Neutrophils # 2.8 K/mcL (1.6-8.9); Platelet Count 107 K/mcL (140-400); Red Blood Count 3.61 M/mcL (3.82-4.97); Red Cell Distribution Width 13.2 % (11.5-14.5); Segmented Neutrophils % 69.3 %; White Blood Count 4.1 K/mcL (4.3-11.1)
[2021-04-04 02:54] LABS: Calcium 8.5 mg/dL (8.6-10.3); Potassium 4.4 mEq/L (3.5-5.1)
[2021-04-04 02:56] LABS: Platelet Estimate Slight Decrease (Normal)
[2021-04-04] MEDS: Insulin LISPRO 300 UNITS/3 ML VIAL SUBQ SCH ×5 (03:09→19:39)
[2021-04-04] MEDS: Acetaminophen 325 MG TABLET PO PRN (05:48)
[2021-04-04] MEDS: cefTRIAXone 1,000 MG in Water for inj. (sterile) 10 ML IVP SCH (09:59)
[2021-04-04] MEDS: Multivit/Ca/Min/Fe/FA 1 TAB TABLET PO SCH (09:59)
[2021-04-04] MEDS: Aspirin Enteric Coated 81 MG Tablet PO SCH (10:00)
[2021-04-04] MEDS: lisinopriL 5 MG TABLET PO SCH (10:00)
[2021-04-04] MEDS: Metoprolol XL (24 HR) Succ 25 MG TAB.ER.24H PO SCH (10:00)
[2021-04-04] MEDS: Gabapentin 300 MG CAPSULE PO SCH ×3 (10:00→19:47)
[2021-04-04] MEDS: Nystatin POWDER 30 GM BOTTLE TP SCH ×3 (10:04→19:48)
[2021-04-04] MEDS: Nystatin Cream 15 GM TUBE TP SCH ×3 (10:04→19:49)
[2021-04-04] MEDS: Doxycycline 100 MG CAPSULE PO SCH ×2 (11:53→17:12)
[2021-04-04] MEDS: *HR* HYDROcodone/Acet 10/325 mg TABLET PO PRN (13:43)
[2021-04-04] MEDS: Loratadine 10 MG TABLET PO SCH (17:12)
[2021-04-04] MEDS: *HR* Heparin 5,000 UNIT/ML VIAL SQ SCH (17:14)
[2021-04-04] MEDS: *HR* OxyCODONE Immed Rel 5 MG TABLET PO PRN (19:47)
[2021-04-05] MEDS: *HR* HYDROcodone/Acet 10/325 mg TABLET PO PRN ×2 (00:02→10:19)
[2021-04-05 05:06] LABS: Basophils % 0.2 %; Hemoglobin 11.1 g/dL (11.5-15.4); Red Cell Distribution Width 12.8 % (11.5-14.5)
[2021-04-05 05:08] LABS: Eosinophils # 0.2 K/mcL (0.0-0.6); Eosinophils % 4.9 %; Hematocrit 34.4 % (35.3-44.9); Immature Granulocytes % 0.6 % (0-4); Immature Platelets 4.1 % (1.1-6.1); Lymphocytes # 1.1 K/mcL (0.6-4.6); Lymphocytes % 23.3 %; Mean Corpuscular HGB Conc 32.3 g/dL (31.6-35.5); Mean Corpuscular Hemoglobin 30.3 pg (28.0-33.3); Mean Platelet Volume 10.7 fL (9.4-12.4); Monocytes # 0.7 K/mcL (0.0-1.3); Monocytes % 14.8 %; Neutrophils # 2.8 K/mcL (1.6-8.9); Platelet Count 98 K/mcL (140-400); Red Blood Count 3.66 M/mcL (3.82-4.97); Segmented Neutrophils % 56.2 %; White Blood Count 4.9 K/mcL (4.3-11.1)
[2021-04-05] MEDS: Doxycycline 100 MG CAPSULE PO SCH ×2 (05:22→17:19)
[2021-04-05] MEDS: *HR* Heparin 5,000 UNIT/ML VIAL SQ SCH ×2 (05:23→17:19)
[2021-04-05 05:27] LABS: Calcium 8.3 mg/dL (8.6-10.3); Potassium 3.9 mEq/L (3.5-5.1)
[2021-04-05] MEDS: Insulin LISPRO 300 UNITS/3 ML VIAL SUBQ SCH ×4 (07:46→20:59)
[2021-04-05] MEDS: Multivit/Ca/Min/Fe/FA 1 TAB TABLET PO SCH (10:19)
[2021-04-05] MEDS: Metoprolol XL (24 HR) Succ 25 MG TAB.ER.24H PO SCH (10:20)
[2021-04-05] MEDS: Aspirin Enteric Coated 81 MG Tablet PO SCH (10:20)
[2021-04-05] MEDS: cefTRIAXone 2,000 MG in Water for inj. (sterile) 20 ML IVP SCH (10:20)
[2021-04-05] MEDS: Gabapentin 300 MG CAPSULE PO SCH ×3 (10:20→20:58)
[2021-04-05] MEDS: lisinopriL 5 MG TABLET PO SCH (10:20)
[2021-04-05] MEDS: Nystatin POWDER 30 GM BOTTLE TP SCH ×3 (10:21→21:00)
[2021-04-05] MEDS: Nystatin Cream 15 GM TUBE TP SCH ×3 (10:21→21:00)
[2021-04-05] MEDS ORDERED: Nystatin Cream 15 GM TUBE TP PRN (13:16)
[2021-04-05] MEDS ORDERED: Nystatin POWDER 30 GM BOTTLE TP PRN (13:16)
[2021-04-05] MEDS: Loratadine 10 MG TABLET PO SCH (17:19)
[2021-04-05] MEDS: *HR* OxyCODONE Immed Rel 5 MG TABLET PO PRN (21:09)
[2021-04-06 03:30] LABS: Basophils % 0.4 %; Eosinophils # 0.3 K/mcL (0.0-0.6); Hematocrit 36.6 % (35.3-44.9); Hemoglobin 11.9 g/dL (11.5-15.4); Immature Granulocytes % 0.4 % (0-4); Lymphocytes # 1.5 K/mcL (0.6-4.6); Lymphocytes % 30.6 %; Mean Corpuscular HGB Conc 32.5 g/dL (31.6-35.5); Mean Corpuscular Hemoglobin 30.4 pg (28.0-33.3); Mean Corpuscular Volume 93.6 fL (83.0-100.0); Mean Platelet Volume 10.9 fL (9.4-12.4); Monocytes # 0.7 K/mcL (0.0-1.3); Monocytes % 14.7 %; Neutrophils # 2.4 K/mcL (1.6-8.9); Platelet Count 106 K/mcL (140-400); Red Blood Count 3.91 M/mcL (3.82-4.97); Red Cell Distribution Width 12.6 % (11.5-14.5); Segmented Neutrophils % 47.9 %
[2021-04-06 03:50] LABS: BUN/Creatinine Ratio 19 (6-26); Blood Urea Nitrogen 20 mg/dL (8-23); Calcium 8.6 mg/dL (8.6-10.3); Carbon Dioxide 27 mEq/L (23-29); Chloride 102 mEq/L (98-107); Glucose 121 mg/dL (70-105); Osmolality,Calculated 286 (280-300); Sodium 136 mEq/L (136-145); eGFR For African Americans > 60 (> 60); eGFR For Non-African Americans 54 (> 60)
[2021-04-06] MEDS: Doxycycline 100 MG CAPSULE PO SCH ×2 (04:39→17:30)
[2021-04-06] MEDS: *HR* Heparin 5,000 UNIT/ML VIAL SQ SCH ×2 (04:39→17:31)
[2021-04-06] MEDS: Insulin LISPRO 300 UNITS/3 ML VIAL SUBQ SCH ×4 (08:04→21:58)
[2021-04-06] MEDS: Aspirin Enteric Coated 81 MG Tablet PO SCH (10:28)
[2021-04-06] MEDS: Furosemide 20 MG TABLET PO SCH (10:29)
[2021-04-06] MEDS: Nystatin POWDER 30 GM BOTTLE TP SCH ×3 (10:31→22:00)
[2021-04-06] MEDS: Nystatin Cream 15 GM TUBE TP SCH ×3 (10:31→21:59)
[2021-04-06] MEDS: Vitamin E 200 UNIT (90MG) CAPSULE PO SCH (10:31)
[2021-04-06] MEDS: Gabapentin 300 MG CAPSULE PO SCH ×3 (10:32→22:00)
[2021-04-06] MEDS: Multivit/Ca/Min/Fe/FA 1 TAB TABLET PO SCH (10:32)
[2021-04-06] MEDS: Metoprolol XL (24 HR) Succ 25 MG TAB.ER.24H PO SCH (10:32)
[2021-04-06] MEDS: lisinopriL 5 MG TABLET PO SCH (10:32)
[2021-04-06] MEDS: cefTRIAXone 2,000 MG in Water for inj. (sterile) 20 ML IVP SCH (10:33)
[2021-04-06] MEDS: *HR* HYDROcodone/Acet 10/325 mg TABLET PO PRN (10:45)
[2021-04-06] MEDS: *HR* OxyCODONE Immed Rel 5 MG TABLET PO PRN ×2 (16:17→22:34)
[2021-04-06] MEDS: Loratadine 10 MG TABLET PO SCH (17:30)
[2021-04-07] MEDS: Doxycycline 100 MG CAPSULE PO SCH ×2 (06:00→16:53)
[2021-04-07] MEDS: *HR* Heparin 5,000 UNIT/ML VIAL SQ SCH ×2 (06:00→16:53)
[2021-04-07 08:06] LABS: Eosinophils % 1.4 %; Hemoglobin 12.2 g/dL (11.5-15.4); Mean Corpuscular Hemoglobin 30.1 pg (28.0-33.3); Red Blood Count 4.05 M/mcL (3.82-4.97)
[2021-04-07 08:08] LABS: Basophils % 0.4 %; Eosinophils # 0.1 K/mcL (0.0-0.6); Hematocrit 37.8 % (35.3-44.9); Immature Granulocytes % 0.4 % (0-4); Immature Platelets 3.6 % (1.1-6.1); Lymphocytes # 1.8 K/mcL (0.6-4.6); Lymphocytes % 23.6 %; Mean Corpuscular HGB Conc 32.3 g/dL (31.6-35.5); Mean Corpuscular Volume 93.3 fL (83.0-100.0); Mean Platelet Volume 10.7 fL (9.4-12.4); Monocytes # 0.8 K/mcL (0.0-1.3); Monocytes % 10.1 %; Neutrophils # 4.9 K/mcL (1.6-8.9); Platelet Count 129 K/mcL (140-400); Red Cell Distribution Width 12.4 % (11.5-14.5); Segmented Neutrophils % 64.1 %; White Blood Count 7.7 K/mcL (4.3-11.1)
[2021-04-07] MEDS: Insulin LISPRO 300 UNITS/3 ML VIAL SUBQ SCH ×4 (08:22→21:05)
[2021-04-07] MEDS: cefTRIAXone 2,000 MG in Water for inj. (sterile) 20 ML IVP SCH (08:23)
[2021-04-07] MEDS: Nystatin POWDER 30 GM BOTTLE TP SCH ×3 (08:24→21:07)
[2021-04-07] MEDS: Multivit/Ca/Min/Fe/FA 1 TAB TABLET PO SCH (08:25)
[2021-04-07] MEDS: Metoprolol XL (24 HR) Succ 25 MG TAB.ER.24H PO SCH (08:25)
[2021-04-07] MEDS: Aspirin Enteric Coated 81 MG Tablet PO SCH (08:25)
[2021-04-07] MEDS: Gabapentin 300 MG CAPSULE PO SCH ×3 (08:26→21:05)
[2021-04-07] MEDS: lisinopriL 5 MG TABLET PO SCH (08:26)
[2021-04-07] MEDS: Furosemide 20 MG TABLET PO SCH (08:26)
[2021-04-07] MEDS: Vitamin E 200 UNIT (90MG) CAPSULE PO SCH (08:26)
[2021-04-07] MEDS: Nystatin Cream 15 GM TUBE TP SCH ×3 (08:27→21:06)
[2021-04-07 08:30] LABS: BUN/Creatinine Ratio 20 (6-26); Blood Urea Nitrogen 21 mg/dL (8-23); Calcium 8.7 mg/dL (8.6-10.3); Carbon Dioxide 27 mEq/L (23-29); Chloride 99 mEq/L (98-107); Glucose 161 mg/dL (70-105); Osmolality,Calculated 286 (280-300); Sodium 135 mEq/L (136-145); eGFR For African Americans > 60 (> 60); eGFR For Non-African Americans 52 (> 60)
[2021-04-07] MEDS: *HR* HYDROcodone/Acet 10/325 mg TABLET PO PRN (13:15)
[2021-04-07] MEDS: Loratadine 10 MG TABLET PO SCH (16:53)
[2021-04-07] MEDS: *HR* OxyCODONE Immed Rel 5 MG TABLET PO PRN (17:39)
[2021-04-08] MEDS: *HR* OxyCODONE Immed Rel 5 MG TABLET PO PRN ×2 (03:34→14:22)
[2021-04-08] MEDS: *HR* Heparin 5,000 UNIT/ML VIAL SQ SCH ×2 (06:48→17:00)
[2021-04-08] MEDS: Doxycycline 100 MG CAPSULE PO SCH ×2 (06:49→17:00)
[2021-04-08 07:27] LABS: Basophils % 0.1 %; Eosinophils # 0.1 K/mcL (0.0-0.6); Eosinophils % 1.5 %; Hematocrit 37.8 % (35.3-44.9); Hemoglobin 12.1 g/dL (11.5-15.4); Immature Granulocytes % 0.6 % (0-4); Lymphocytes % 22.7 %; Mean Corpuscular Hemoglobin 30.2 pg (28.0-33.3); Mean Corpuscular Volume 94.3 fL (83.0-100.0); Mean Platelet Volume 10.7 fL (9.4-12.4); Monocytes # 0.7 K/mcL (0.0-1.3); Monocytes % 8.4 %; Neutrophils # 5.8 K/mcL (1.6-8.9); Platelet Count 143 K/mcL (140-400); Red Blood Count 4.01 M/mcL (3.82-4.97); Red Cell Distribution Width 12.7 % (11.5-14.5); Segmented Neutrophils % 66.7 %; White Blood Count 8.7 K/mcL (4.3-11.1)
[2021-04-08 07:39] LABS: BUN/Creatinine Ratio 22 (6-26); Blood Urea Nitrogen 23 mg/dL (8-23); Calcium 8.7 mg/dL (8.6-10.3); Carbon Dioxide 29 mEq/L (23-29); Chloride 100 mEq/L (98-107); Glucose 160 mg/dL (70-105); Osmolality,Calculated 289 (280-300); Potassium 3.9 mEq/L (3.5-5.1); Sodium 136 mEq/L (136-145); eGFR For African Americans > 60 (> 60); eGFR For Non-African Americans 53 (> 60)
[2021-04-08] MEDS: Metoprolol XL (24 HR) Succ 25 MG TAB.ER.24H PO SCH (08:43)
[2021-04-08] MEDS: Aspirin Enteric Coated 81 MG Tablet PO SCH (08:44)
[2021-04-08] MEDS: lisinopriL 5 MG TABLET PO SCH (08:44)
[2021-04-08] MEDS: Vitamin E 200 UNIT (90MG) CAPSULE PO SCH (08:44)
[2021-04-08] MEDS: Multivit/Ca/Min/Fe/FA 1 TAB TABLET PO SCH (08:44)
[2021-04-08] MEDS: Furosemide 20 MG TABLET PO SCH (08:44)
[2021-04-08] MEDS: *HR* HYDROcodone/Acet 10/325 mg TABLET PO PRN ×2 (08:44→17:01)
[2021-04-08] MEDS: Nystatin Cream 15 GM TUBE TP SCH ×3 (08:45→19:55)
[2021-04-08] MEDS: Gabapentin 300 MG CAPSULE PO SCH ×3 (08:45→19:53)
[2021-04-08] MEDS: Insulin LISPRO 300 UNITS/3 ML VIAL SUBQ SCH ×4 (08:45→19:54)
[2021-04-08] MEDS: Nystatin POWDER 30 GM BOTTLE TP SCH ×3 (08:45→19:55)
[2021-04-08] MEDS: Loratadine 10 MG TABLET PO SCH (17:32)
[2021-04-09] MEDS: *HR* Heparin 5,000 UNIT/ML VIAL SQ SCH ×2 (05:54→16:29)
[2021-04-09] MEDS: *HR* HYDROcodone/Acet 10/325 mg TABLET PO PRN ×2 (05:54→16:29)
[2021-04-09] MEDS: Doxycycline 100 MG CAPSULE PO SCH ×2 (05:55→16:30)
[2021-04-09] MEDS: Gabapentin 300 MG CAPSULE PO SCH ×3 (08:43→21:44)
[2021-04-09] MEDS: Aspirin Enteric Coated 81 MG Tablet PO SCH (08:43)
[2021-04-09] MEDS: Vitamin E 200 UNIT (90MG) CAPSULE PO SCH (08:43)
[2021-04-09] MEDS: Metoprolol XL (24 HR) Succ 25 MG TAB.ER.24H PO SCH (08:43)
[2021-04-09] MEDS: Multivit/Ca/Min/Fe/FA 1 TAB TABLET PO SCH (08:43)
[2021-04-09] MEDS: Insulin LISPRO 300 UNITS/3 ML VIAL SUBQ SCH ×4 (08:44→21:46)
[2021-04-09] MEDS: Furosemide 20 MG TABLET PO SCH (08:44)
[2021-04-09] MEDS: Nystatin POWDER 30 GM BOTTLE TP SCH ×3 (08:44→21:46)
[2021-04-09] MEDS: lisinopriL 5 MG TABLET PO SCH (08:44)
[2021-04-09] MEDS: Nystatin Cream 15 GM TUBE TP SCH ×3 (08:44→21:46)
[2021-04-09] MEDS: *HR* OxyCODONE Immed Rel 5 MG TABLET PO PRN ×2 (12:27→21:45)
[2021-04-09] MEDS: Loratadine 10 MG TABLET PO SCH (16:29)
[2021-04-10] MEDS: *HR* Heparin 5,000 UNIT/ML VIAL SQ SCH ×2 (05:06→17:19)
[2021-04-10] MEDS: Doxycycline 100 MG CAPSULE PO SCH (05:06)
[2021-04-10] MEDS: Aspirin Enteric Coated 81 MG Tablet PO SCH (08:38)
[2021-04-10] MEDS: Metoprolol XL (24 HR) Succ 25 MG TAB.ER.24H PO SCH (08:38)
[2021-04-10] MEDS: lisinopriL 5 MG TABLET PO SCH (08:38)
[2021-04-10] MEDS: Vitamin E 200 UNIT (90MG) CAPSULE PO SCH (08:38)
[2021-04-10] MEDS: *HR* HYDROcodone/Acet 10/325 mg TABLET PO PRN (08:38)
[2021-04-10] MEDS: Gabapentin 300 MG CAPSULE PO SCH ×2 (08:38→17:19)
[2021-04-10] MEDS: Insulin LISPRO 300 UNITS/3 ML VIAL SUBQ SCH ×3 (08:39→17:19)
[2021-04-10] MEDS: Furosemide 20 MG TABLET PO SCH (08:39)
[2021-04-10] MEDS: Multivit/Ca/Min/Fe/FA 1 TAB TABLET PO SCH (08:39)
[2021-04-10] MEDS: Nystatin Cream 15 GM TUBE TP SCH ×2 (08:42→17:20)
[2021-04-10] MEDS: Nystatin POWDER 30 GM BOTTLE TP SCH ×2 (08:43→17:20)
[2021-04-10 11:52] VITALS: BP 101/51
[2021-04-10] MEDS: Loratadine 10 MG TABLET PO SCH (17:19)
== END 2021-04-10 18:13 | DRG 194 ==
LOC: 2ANU 20:35 → EMEROOARM 20:35 → SUATTDRO 04-03 00:16 → 2ANU 04-03 02:02
PROVIDERS: ADMIT Internal Medicine; ATTEND Family Medicine